=== PATIENT | female | born 1970 | race Two or more races ===

== ENCOUNTER 2018-01-31 17:28 | Emergency (ER) | payer MEDICAID ==
[~2018-01-31] VITALS: Ht 162.6 cm; Wt 77.1 kg
[2018-01-31 18:28] LABS: Urine Bacteria FEW /hpf (None Seen); Urine Blood TRACE /uL (Negative); Urine Specific Gravity 1.003 (1.001-1.035); Urine WBC <1 /hpf (0 - 5)
[2018-01-31 18:38] LABS: Basophils # (auto) 0.1 uL; Basophils % (auto) 0.9 % (0.0-2.0); Eosinophils # (auto) 0.1 uL; Eosinophils % (auto) 1.2 % (0.0-7.0); Hematocrit 38.7 % (36.0-46.0); Hemoglobin 12.6 g/dL (12.2-16.2); Lymphocytes # (auto) 1.6 uL; Lymphocytes % (auto) 24.6 % (10.0-50.0); Mean Corpuscular Hemoglobin 27.7 pg (28.0-32.0); Mean Corpuscular Hgb Conc. 32.5 g/dL (32.0-36.0); Mean Corpuscular Volume 85.1 fL (80.0-100.0); Monocytes # (auto) 0.7 uL; Neutrophils % (auto) 62.3 % (37.0-80.0); Nucleated Red Blood Cells % 0.1 %; Platelet Count (auto) 280 10^3/uL (140-450); Red Blood Cells 4.55 10^6/uL (4.0-5.20); Red Cell Distribution Width 15.7 % (11.8-14.3); White Blood Cell 6.5 10^3/uL (4.4-10.8)
[2018-01-31 18:55] LABS: Albumin 3.9 g/dL (3.4-5.0); Calcium 8.7 mg/dL (8.5-10.1); Potassium 3.9 mmol/L (3.5-5.1)
[2018-01-31 18:59] LABS: BUN/Creatinine Ratio 19.7; Bilirubin, Total 0.3 mg/dL (0.2-1.0); Total Protein 7.8 g/dL (6.4-8.2)
[2018-01-31 19:30] VITALS: BP 118/74
== END 2018-01-31 19:50 | disposition home or self-care (01) ==
LOC: ER 17:33
DX: N83.201 Unspecified ovarian cyst, right side (principal); K29.70 Gastritis, unspecified, without bleeding; Z32.02 Encounter for pregnancy test, result negative
CPT/HCPCS: 36415; 74176; 80053; 81001; 81025; 85025

== ENCOUNTER 2018-02-02 08:03 | Emergency (ER) | payer MEDICAID ==
[~2018-02-02] VITALS: Ht 162.6 cm; Wt 77.1 kg
[2018-02-02 08:32] LABS: Urine Bacteria FEW /hpf (None Seen); Urine Blood Negative /uL (Negative); Urine Mucus FEW (None Seen); Urine Specific Gravity 1.015 (1.001-1.035); Urine WBC 1 /hpf (0 - 5)
[2018-02-02 10:30] VITALS: BP 118/60
== END 2018-02-02 11:59 | disposition home or self-care (01) ==
LOC: ER 08:03
DX: D25.9 Leiomyoma of uterus, unspecified (principal)
CPT/HCPCS: 76856; 81001; 81025

== ENCOUNTER 2018-08-20 09:29 | Emergency (ER) | payer MEDICAID ==
[~2018-08-20] VITALS: Ht 162.6 cm; Wt 71.2 kg
[2018-08-20 09:37] VITALS: BP 149/83
[2018-08-20] MEDS ORDERED: IBUPROFEN 800 MG TAB PO ONE (10:30)
[2018-08-20] MEDS ORDERED: METHOCARBAMOL 500 MG TAB PO ONE (10:30)
== END 2018-08-20 11:42 | disposition home or self-care (01) ==
LOC: EDBD 09:29 → ER 09:29
DX: M16.0 Bilateral primary osteoarthritis of hip (principal); M25.552 Pain in left hip; M54.2 Cervicalgia; M25.512 Pain in left shoulder; Z86.39 Personal history of other endocrine, nutritional and metabolic disease
CPT/HCPCS: 73502

== ENCOUNTER 2018-10-16 11:18 | Emergency (ER) | payer MEDICAID ==
[~2018-10-16] VITALS: Ht 162.6 cm; Wt 71.7 kg
[2018-10-16 12:04] LABS: Urine Bacteria NONE SEEN /hpf (None Seen); Urine Blood TRACE /uL (Negative); Urine Specific Gravity 1.008 (1.001-1.035); Urine WBC 3 /hpf (0 - 5)
[2018-10-16 12:51] LABS: Basophils # (auto) 0.1 uL; Eosinophils # (auto) 0.1 uL; Eosinophils % (auto) 1.8 % (0.0-7.0); Hematocrit 40.5 % (36.0-46.0); Hemoglobin 13.4 g/dL (12.2-16.2); Lymphocytes # (auto) 1.7 uL; Lymphocytes % (auto) 27.2 % (10.0-50.0); Mean Corpuscular Hemoglobin 27.8 pg (28.0-32.0); Mean Corpuscular Hgb Conc. 33.1 g/dL (32.0-36.0); Monocytes # (auto) 0.6 uL; Monocytes % (auto) 10.2 % (0.0-12.0); Neutrophils # (auto) 3.7 uL; Neutrophils % (auto) 59.8 % (37.0-80.0); Nucleated Red Blood Cells % 0.1 %; Platelet Count (auto) 239 10^3/uL (140-450); Red Blood Cells 4.82 10^6/uL (4.0-5.20); Red Cell Distribution Width 15.9 % (11.8-14.3); White Blood Cell 6.2 10^3/uL (4.4-10.8)
[2018-10-16 13:06] LABS: Albumin 3.6 g/dL (3.4-5.0); Calcium 8.8 mg/dL (8.5-10.1); Potassium 4.5 mmol/L (3.5-5.1)
[2018-10-16 13:08] LABS: BUN/Creatinine Ratio 18.1; Bilirubin, Total 0.4 mg/dL (0.2-1.0); Total Protein 7.7 g/dL (6.4-8.2)
[2018-10-16 15:07] VITALS: BP 134/22
== END 2018-10-16 15:10 | disposition home or self-care (01) ==
LOC: ER 11:18
DX: R42 Dizziness and giddiness (principal); Z86.39 Personal history of other endocrine, nutritional and metabolic disease
CPT/HCPCS: 36415; 70450; 80053; 81001; 81025; 85025; 93005

== ENCOUNTER 2018-12-14 19:56 | Emergency (ER) | payer MEDICAID ==
[~2018-12-14] VITALS: Ht 167.6 cm; Wt 72.6 kg
[2018-12-14 21:18] LABS: Basophils # (auto) 0 uL; Basophils % (auto) 0.7 % (0.0-2.0); Eosinophils # (auto) 0.1 uL; Hematocrit 42.5 % (36.0-46.0); Lymphocytes % (auto) 31.3 % (10.0-50.0); Mean Corpuscular Hemoglobin 27.8 pg (28.0-32.0); Mean Corpuscular Volume 84.1 fL (80.0-100.0); Monocytes # (auto) 0.7 uL; Neutrophils # (auto) 3.6 uL; Platelet Count (auto) 263 10^3/uL (140-450); Red Blood Cells 5.05 10^6/uL (4.0-5.20); Red Cell Distribution Width 14.3 % (11.8-14.3); White Blood Cell 6.5 10^3/uL (4.4-10.8)
[2018-12-14 21:28] LABS: Calcium 9.4 mg/dL (8.5-10.1); Potassium 4.1 mmol/L (3.5-5.1)
[2018-12-14 21:32] LABS: BUN/Creatinine Ratio 14.8; Bilirubin, Total 0.2 mg/dL (0.2-1.0); Total Protein 7.7 g/dL (6.4-8.2)
[2018-12-14 21:32] LABS: Urine Bacteria NONE SEEN /hpf (None Seen); Urine Blood TRACE /uL (Negative); Urine Mucus FEW (None Seen); Urine Specific Gravity 1.008 (1.001-1.035); Urine WBC 3 /hpf (0 - 5)
[2018-12-15] MEDS ORDERED: LEVOTHYROXINE SODIUM 112 MCG TAB PO ONE (01:30)
[2018-12-15 03:07] VITALS: BP 118/67
== END 2018-12-15 03:13 | disposition home or self-care (01) ==
LOC: ER 19:58
DX: R00.2 Palpitations (principal); E03.9 Hypothyroidism, unspecified
CPT/HCPCS: 36415; 80053; 81001; 81025; 84443; 85025

== ENCOUNTER 2019-04-05 12:03 | Emergency (ER) | payer MEDICAID ==
[~2019-04-05] VITALS: Ht 162.6 cm; Wt 68.0 kg
[2019-04-05 12:58] VITALS: BP 125/75
[2019-04-05 13:51] LABS: Urine Bacteria FEW /hpf (None Seen); Urine Blood 2+ /uL (Negative); Urine Hyaline Cast FEW /lpf (0 - 2); Urine Mucus FEW (None Seen); Urine Specific Gravity 1.017 (1.001-1.035); Urine WBC 5 /hpf (0 - 5)
[2019-04-05 13:53] LABS: Basophils # (auto) 0.1 uL; Basophils % (auto) 0.9 % (0.0-2.0); Eosinophils # (auto) 0.2 uL; Eosinophils % (auto) 1.5 % (0.0-7.0); Hemoglobin 14.4 g/dL (12.2-16.2); Lymphocytes # (auto) 1.3 uL; Lymphocytes % (auto) 12.6 % (10.0-50.0); Mean Corpuscular Hemoglobin 27.1 pg (28.0-32.0); Mean Corpuscular Hgb Conc. 33.6 g/dL (32.0-36.0); Mean Corpuscular Volume 80.7 fL (80.0-100.0); Monocytes # (auto) 0.9 uL; Monocytes % (auto) 8.7 % (0.0-12.0); Neutrophils # (auto) 7.7 uL; Neutrophils % (auto) 76.3 % (37.0-80.0); Nucleated Red Blood Cells % 0.1 %; Platelet Count (auto) 237 10^3/uL (140-450); Red Blood Cells 5.33 10^6/uL (4.0-5.20); Red Cell Distribution Width 14.6 % (11.8-14.3); White Blood Cell 10.1 10^3/uL (4.4-10.8)
[2019-04-05 14:13] LABS: Albumin 3.5 g/dL (3.4-5.0); Anion Gap 4 (5-15); Blood Urea Nitrogen 9 mg/dL (7-18); Calcium 8.6 mg/dL (8.5-10.1); Carbon Dioxide 29 mmol/L (21-32); Chloride 106 mmol/L (98-107); Glucose 97 mg/dL (74-106); Potassium 4.7 mmol/L (3.5-5.1); Sodium 139 mmol/L (136-145)
[2019-04-05 14:17] LABS: Alanine Aminotransferase 65 U/L (13-56); Alkaline Phosphatase 69 U/L (45-117); Aspartate Aminotransferase 37 U/L (15-37); BUN/Creatinine Ratio 15.3; Bilirubin, Total 0.4 mg/dL (0.2-1.0); GFR African American 141 mL/min; GFR Non-African American 116 mL/min; Total Protein 7.6 g/dL (6.4-8.2)
== END 2019-04-05 14:44 | disposition home or self-care (01) ==
LOC: ER 12:03
DX: R00.2 Palpitations (principal); R20.2 Paresthesia of skin
CPT/HCPCS: 36415; 80053; 81001; 84443; 84484; 85025

== ENCOUNTER 2019-11-17 06:36 | Inpatient (IN) | payer SELFPAY ==
[~2019-11-17] VITALS: Ht 162.6 cm; Wt 70.0 kg
[2019-11-17 07:33] LABS: Urine Amorphous Crystal FEW /hpf (None Seen); Urine Bacteria NONE SEEN /hpf (None Seen); Urine Blood 2+ /uL (Negative); Urine Mucus FEW (None Seen); Urine Specific Gravity 1.021 (1.001-1.035); Urine WBC 17 /hpf (0 - 5)
[2019-11-17 08:55] LABS: Eosinophils # (auto) 0 10 ^3/uL (0-0.8); Hemoglobin 13.2 g/dL (12.2-16.2); Lymphocytes # (auto) 0.5 10 ^3/uL (0.4-5.4); Lymphocytes % (auto) 3.9 % (10.0-50.0)
[2019-11-17 08:56] LABS: Basophils # (auto) 0 10 ^3/uL (0-0.2); Basophils % (auto) 0.3 % (0.0-2.0); Hematocrit 39.8 % (36.0-46.0); Mean Corpuscular Hemoglobin 26.4 pg (28.0-32.0); Mean Corpuscular Hgb Conc. 33.1 g/dL (32.0-36.0); Mean Corpuscular Volume 79.6 fL (80.0-100.0); Monocytes # (auto) 0.8 10 ^3/uL (0-1.3); Neutrophils # (auto) 11.7 10 ^3/uL (1.6-8.6); Neutrophils % (auto) 89.8 % (37.0-80.0); Nucleated Red Blood Cells % 0.1 %; Platelet Count (auto) 237 10^3/uL (140-450); Red Cell Distribution Width 16.9 % (11.8-14.3); White Blood Cell 13.1 10^3/uL (4.4-10.8)
[2019-11-17] MEDS ORDERED: SODIUM CHLORIDE 0.9% 1,000 ML IV ONE (09:12)
[2019-11-17] MEDS ORDERED: SODIUM CHLORIDE 0.9% 500 ML IVB ONE (09:12)
[2019-11-17] MEDS ORDERED: PROMETHAZINE HCL 25 MG/ML 1ML IV PRN ×2 (09:15→12:00)
[2019-11-17] MEDS ORDERED: HYDROmorphone HCL 2 MG/ML VL IV ONE (09:15)
[2019-11-17] MEDS ORDERED: cefTRIAXone 1GM/50ML D5W 50 ML IV ONE (09:15)
[2019-11-17] MEDS ORDERED: metroNIDAZOLE 500MG/100ML 100 ML IV ONE (09:15)
[2019-11-17 09:17] LABS: Albumin 3.8 g/dL (3.4-5.0); BUN/Creatinine Ratio 16.5; Calcium 9.3 mg/dL (8.5-10.1); Potassium 3.8 mmol/L (3.5-5.1)
[2019-11-17 09:19] LABS: Bilirubin, Total 0.4 mg/dL (0.2-1.0)
[2019-11-17] MEDS ORDERED: IOHEXOL 300 MG/ML 100ML BOTTLE IJ ONE (10:37)
[2019-11-17] MEDS ORDERED: NITROGLYCERIN 0.4 MG SL TAB SL PRN (11:45)
[2019-11-17] MEDS ORDERED: MORPHINE SULF INJ 2 MG/ML SYRINGE 1ML IV PRN ×2 (11:45→12:00)
[2019-11-17 13:00] VITALS: BP 129/93
--- NOTE | 2019-11-17 13:30 | NUR ---
Telemetry admit from ER DERRICK WEBB admitted to Telemetry unit after SBAR received. Patient oriented to SONAL ARBOLEDA, primary RN, unit, room, bed, and unit policies regarding patient care and visiting hours. Patient now on continuous telemetry monitoring, tele box #[id number] and telemetry reading on arrival to unit is SR. Patient weighed by bedscale and encouraged to call if they need something. All questions and concerns addressed, patient verbalized understanding. Used restrooms or lounges maid phone to do patient's admission due to patient speaking mostly Bulgarian.
[2019-11-17] MEDS: MORPHINE SULF INJ 2 MG/ML SYRINGE 1ML IV PRN ×2 (13:50→19:50)
--- NOTE | 2019-11-17 14:15 | NUR ---
Paged - Temp Paged Dr. Pollock twice to inform him of patient's temperature of 102. Have not heard anything back. Patient has no order for Tylenol. Packed ice packs around the patient. Will monitor and recheck temperature. Also removed blanket and robe from patient to decrease temp.
[2019-11-17] MEDS: SODIUM CHLORIDE 0.9% 1,000 ML IV SCH ×3 (14:22→23:36)
[2019-11-17] MEDS: FAMOTIDINE (10MG/ML) 2ML VL IV SCH ×2 (14:22→23:35)
[2019-11-17] MEDS: metroNIDAZOLE 500MG/100ML 100 ML IV SCH ×2 (14:22→23:35)
[2019-11-17] MEDS ORDERED: LIOT5TAB20 PO (15:40)
[2019-11-17] MEDS ORDERED: LEVO100T8 PO (15:40)
[2019-11-17] MEDS ORDERED: ACETAMINOPHEN 650 MG RECT SUPP PR PRN (15:45)
[2019-11-17] MEDS ORDERED: MELA3TAB27 PO (16:07)
[2019-11-17 17:00] VITALS: BP 111/63
[2019-11-17 19:17] LABS: INR 1.08 (0.9-1.15); Partial Thromboplastin Time 25.2 sec (23.0-31.2)
[2019-11-17 19:50] VITALS: BP 120/57
[2019-11-17] MEDS ORDERED: SUCCINYLCHOLINE CHLORIDE 20 MG/ML 10ML VIAL IV ONE (20:42)
[2019-11-17] MEDS ORDERED: fentaNYL CITRATE 100 MCG/2 ML VL ONE (20:44)
[2019-11-17] MEDS ORDERED: MIDAZOLAM HCL 1MG/1ML-2 ML VIAL ONE (20:44)
[2019-11-17] MEDS ORDERED: ROCURONIUM 10MG/ML 10ML VIAL IV ONE (20:47)
--- NOTE | 2019-11-17 20:48 | NUR ---
PATIENT BROUGHT DOWN TO PREOP FOR LAP. APPENDECTOMY. CARE ENDORSED TO GISEL SHEARER.
[2019-11-17] MEDS ORDERED: ceFAZolin 1GM/50ML 50 ML IV ONE (20:52)
[2019-11-17] MEDS ORDERED: BUPIVACAINE 0.25% INJ 50ML VIAL ONE (20:56)
[2019-11-17] MEDS ORDERED: ONDANSETRON HCL 4 MG/2 ML VIAL ONE (21:44)
[2019-11-17] MEDS ORDERED: MEPERIDINE HCL (25 MG/ML) 1ML VIAL IM ONE (22:35)
[2019-11-17] MEDS ORDERED: MEPERIDINE HCL (25 MG/ML) 1ML VIAL ONE (22:39)
[2019-11-17] MEDS ORDERED: METOCLOPRAMIDE HCL 5MG/ml INJ 2ml VIAL IV PRN (22:45)
[2019-11-17] MEDS ORDERED: HYDROmorphone HCL 2 MG/ML VL IV PRN ×2 (22:45)
--- NOTE | 2019-11-17 23:45 | NUR ---
RECEIVED PATIENT VIA BED, ALERT AND ORIENTED X 4, C/O ABDOMINAL PAIN 5/10, WITH FIELDS CATHETER, URINE OUTPUT IS DARK TASHA, WITH LAP INCISIONS X 3, BULB DRAIN ON LOWER ABDOMEN WITH SEROSANGUINOUS OUTPUT. PATIENT IS RECEIVING NS AT 150ML/HR, TELE #67, NSR.
[2019-11-18 05:00] VITALS: BP 104/62
[2019-11-18 06:06] LABS: Basophils # (auto) 0 10 ^3/uL (0-0.2); Basophils % (auto) 0.2 % (0.0-2.0); Eosinophils # (auto) 0 10 ^3/uL (0-0.8); Mean Corpuscular Volume 80.3 fL (80.0-100.0)
[2019-11-18 06:08] LABS: Hematocrit 34.6 % (36.0-46.0); Hemoglobin 11.3 g/dL (12.2-16.2); Lymphocytes # (auto) 1.2 10 ^3/uL (0.4-5.4); Lymphocytes % (auto) 7.8 % (10.0-50.0); Mean Corpuscular Hemoglobin 26.2 pg (28.0-32.0); Mean Corpuscular Hgb Conc. 32.7 g/dL (32.0-36.0); Monocytes # (auto) 0.7 10 ^3/uL (0-1.3); Monocytes % (auto) 4.4 % (0.0-12.0); Neutrophils % (auto) 87.6 % (37.0-80.0); Platelet Count (auto) 193 10^3/uL (140-450); Red Blood Cells 4.31 10^6/uL (4.0-5.20); Red Cell Distribution Width 17.5 % (11.8-14.3); White Blood Cell 14.8 10^3/uL (4.4-10.8)
[2019-11-18] MEDS: metroNIDAZOLE 500MG/100ML 100 ML IV SCH ×3 (06:14→20:59)
[2019-11-18] MEDS: MORPHINE SULF INJ 2 MG/ML SYRINGE 1ML IV PRN ×4 (06:15→20:59)
[2019-11-18 06:30] LABS: Albumin 2.6 g/dL (3.4-5.0); Calcium 7.9 mg/dL (8.5-10.1); Potassium 3.8 mmol/L (3.5-5.1)
[2019-11-18 06:33] LABS: BUN/Creatinine Ratio 28.1
--- NOTE | 2019-11-18 06:36 | NUR ---
TAO DRAIN OUTPUT IS 40ML, SEROSANGUINOUS.
[2019-11-18 06:48] LABS: Bilirubin, Total 0.7 mg/dL (0.2-1.0); Total Protein 6.3 g/dL (6.4-8.2)
[2019-11-18] MEDS: SODIUM CHLORIDE 0.9% 1,000 ML IV SCH ×3 (07:36→23:45)
[2019-11-18] MEDS: cefTRIAXone 1GM/50ML D5W 50 ML IV SCH (08:38)
[2019-11-18 09:00] VITALS: BP 101/62
[2019-11-18] MEDS: FAMOTIDINE (10MG/ML) 2ML VL IV SCH ×2 (11:31→23:47)
[2019-11-18] MEDS ORDERED: LEVOTHYROXINE SODIUM 100 MCG TAB PO ONE (12:15)
[2019-11-18 13:00] VITALS: BP 111/57
[2019-11-18 16:59] VITALS: BP 124/66
--- NOTE | 2019-11-18 20:49 | NUR ---
IV insertion IV access obtained, via clean sterile technique by inserting #22 gauge catheter at LEFT WRIST after 1 attempt(s). IV secured properly. No trauma to site. Patient tolerated well. IV removal IV DC'd ON RIGHT AC with clean sterile technique, catheter fully intact. Pressure dressing applied to site. Patient tolerated well. NOTE:
--- NOTE | 2019-11-18 21:00 | NUR ---
Opening Shift Note Assumed care of patient, awake and alert. No S/S of distress/SOB. Patient got out of bed with minimal assist, sat on the chair and walked around hallway. Patient tolerated activity well, c/o abdominal pain and medicated with morphine as ordered. Instructed on POC and to call for assist PRN, will continue to monitor for changes Q1hr and PRN.
[2019-11-18 22:00] VITALS: BP 133/81
[2019-11-18] MEDS: TEMAZEPAM 15 MG CAP PO PRN (23:51)
[2019-11-19 05:00] VITALS: BP 140/84
[2019-11-19] MEDS: metroNIDAZOLE 500MG/100ML 100 ML IV SCH ×3 (05:33→20:34)
[2019-11-19] MEDS: MORPHINE SULF INJ 2 MG/ML SYRINGE 1ML IV PRN ×3 (05:42→20:33)
--- NOTE | 2019-11-19 06:56 | NUR ---
TAO DRAIN OUTPUT IS 20 ML, SEROUSANGUINOUS.
[2019-11-19] MEDS ORDERED: LIOTHYRONINE PO SCH (07:00)
[2019-11-19] MEDS ORDERED: LEVOTHYROXINE SODIUM 100 MCG TAB PO SCH (07:00)
[2019-11-19 07:16] LABS: Basophils # (auto) 0 10 ^3/uL (0-0.2); Eosinophils # (auto) 0 10 ^3/uL (0-0.8); Eosinophils % (auto) 0.1 % (0.0-7.0); Mean Corpuscular Volume 79.7 fL (80.0-100.0); Monocytes # (auto) 0.6 10 ^3/uL (0-1.3)
[2019-11-19 07:19] LABS: Basophils % (auto) 0.1 % (0.0-2.0); Hematocrit 34.5 % (36.0-46.0); Hemoglobin 11.3 g/dL (12.2-16.2); Lymphocytes # (auto) 0.9 10 ^3/uL (0.4-5.4); Lymphocytes % (auto) 6.5 % (10.0-50.0); Mean Corpuscular Hemoglobin 26.1 pg (28.0-32.0); Mean Corpuscular Hgb Conc. 32.8 g/dL (32.0-36.0); Monocytes % (auto) 4.3 % (0.0-12.0); Neutrophils # (auto) 12.8 10 ^3/uL (1.6-8.6); Platelet Count (auto) 192 10^3/uL (140-450); Red Blood Cells 4.32 10^6/uL (4.0-5.20); Red Cell Distribution Width 17.6 % (11.8-14.3); White Blood Cell 14.4 10^3/uL (4.4-10.8)
[2019-11-19 07:35] LABS: Potassium 3.4 mmol/L (3.5-5.1)
[2019-11-19 07:44] LABS: BUN/Creatinine Ratio 20.4; Calcium 8.2 mg/dL (8.5-10.1); Magnesium 2.3 mg/dL (1.6-2.6)
[2019-11-19 08:00] VITALS: BP 128/79
--- NOTE | 2019-11-19 08:00 | NUR ---
Patient eating breakfast. No distress noted at this time. Patient stable.
[2019-11-19 09:00] VITALS: BP 128/79
[2019-11-19] MEDS: SODIUM CHLORIDE 0.9% 1,000 ML IV SCH ×2 (09:28→20:12)
[2019-11-19] MEDS: cefTRIAXone 1GM/50ML D5W 50 ML IV SCH (09:28)
--- NOTE | 2019-11-19 09:30 | NUR ---
Patient resting quietly in bed with no complaint of pain. Scheduled IV abx given per order. Patient stable.
--- NOTE | 2019-11-19 11:15 | NUR ---
Patient resting comfortably in bed. Emptied 120mls from TAO drain and 650mls from Hutchinson drainage bag. Hutchinson catheter discontinued per order. Patient ambulated to bathroom.
--- NOTE | 2019-11-19 11:30 | NUR ---
Patient ambulating in hallway.
[2019-11-19] MEDS: FAMOTIDINE (10MG/ML) 2ML VL IV SCH (11:48)
--- NOTE | 2019-11-19 11:54 | NUR ---
Patient resting in bed with no distress noted. Scheduled IVP medication given per order. Patient requested pain med for 8/10 abdominal pain. Will medicate.
--- NOTE | 2019-11-19 12:15 | NUR ---
Patient ambulated to bathroom and back to bed; then medicated for 8/10 abdominal pain. Patient stable at this time.
[2019-11-19] MEDS ORDERED: POTASSIUM CHL 20 Meq TABLET PO ONE (12:45)
--- NOTE | 2019-11-19 13:24 | NUR ---
Scheduled IV abx given per order. Patient resting comfortably in bed with no distress noted. Patient stable.
--- NOTE | 2019-11-19 14:09 | NUR ---
Patient sitting on side of bed. Scheduled medication given per order. Patient stable.
--- NOTE | 2019-11-19 15:00 | NUR ---
Patient resting comfortably in bed with eyes closed. No distress noted. Patient stable.
[2019-11-19 16:57] VITALS: BP 113/54
--- NOTE | 2019-11-19 17:50 | NUR ---
Patient ambulating in hallway.
--- NOTE | 2019-11-19 20:30 | NUR ---
PATIENT AMBULATED AROUND HALLWAYS, TOLERATED WELL. TAO DRAIN SITE DRESSING WAS SATURATED WITH SANGUINOUS DRAIN, DRESSING CHANGED.
[2019-11-19] MEDS: TEMAZEPAM 15 MG CAP PO PRN (20:34)
[2019-11-19 22:39] VITALS: BP 134/78
[2019-11-20] MEDS: FAMOTIDINE (10MG/ML) 2ML VL IV SCH ×2 (00:32→11:45)
[2019-11-20 05:00] VITALS: BP 119/64
[2019-11-20] MEDS: metroNIDAZOLE 500MG/100ML 100 ML IV SCH ×3 (05:06→21:53)
[2019-11-20] MEDS: SODIUM CHLORIDE 0.9% 1,000 ML IV SCH ×2 (05:06→12:50)
--- NOTE | 2019-11-20 05:59 | NUR ---
TAO DRAIN OUT PUT IS 100ML, SANGUINOUS. DRESSING CHANGED AT THE TAO DRAIN SITE IT WAS SATURATED.
[2019-11-20 07:12] LABS: Basophils # (auto) 0 10 ^3/uL (0-0.2); Eosinophils # (auto) 0.1 10 ^3/uL (0-0.8); Monocytes # (auto) 0.8 10 ^3/uL (0-1.3); Red Blood Cells 4.27 10^6/uL (4.0-5.20)
[2019-11-20 07:14] LABS: Basophils % (auto) 0.2 % (0.0-2.0); Eosinophils % (auto) 1.1 % (0.0-7.0); Hematocrit 34.2 % (36.0-46.0); Hemoglobin 11.4 g/dL (12.2-16.2); Lymphocytes # (auto) 0.9 10 ^3/uL (0.4-5.4); Lymphocytes % (auto) 8.6 % (10.0-50.0); Mean Corpuscular Hemoglobin 26.7 pg (28.0-32.0); Mean Corpuscular Hgb Conc. 33.4 g/dL (32.0-36.0); Monocytes % (auto) 7.4 % (0.0-12.0); Neutrophils # (auto) 8.6 10 ^3/uL (1.6-8.6); Neutrophils % (auto) 82.7 % (37.0-80.0); Nucleated Red Blood Cells % 0.1 %; Platelet Count (auto) 227 10^3/uL (140-450); Red Cell Distribution Width 17.1 % (11.8-14.3); White Blood Cell 10.4 10^3/uL (4.4-10.8)
--- NOTE | 2019-11-20 07:45 | NUR ---
Patient resting comfortably in bed with no complaint of pain at this time. Patient stable.
[2019-11-20] MEDS ORDERED: NEOSTIGMINE 1 MG/ML INJ (10mg/10ML VIAL) IV ONE (08:07)
[2019-11-20 08:30] VITALS: BP 134/77
[2019-11-20 09:00] VITALS: BP 128/77
[2019-11-20] MEDS: cefTRIAXone 1GM/50ML D5W 50 ML IV SCH (09:02)
--- NOTE | 2019-11-20 09:04 | NUR ---
Scheduled IV abx given per order. Patient resting comfortably in bed with no distress noted. Patient stable.
--- NOTE | 2019-11-20 09:40 | NUR ---
Patient stable with Dr. Goodwin at bedside. New order given and carried out: advance to soft diet.
--- NOTE | 2019-11-20 11:10 | NUR ---
Patient resting comfortably in bed with no distress noted; no complaint of abdominal pain. Patient stable.
--- NOTE | 2019-11-20 11:46 | NUR ---
Scheduled IVP medication given per order. Patient resting quietly in bed with no distress. Stable.
[2019-11-20] MEDS ORDERED: POTASSIUM CHL 20 Meq TABLET PO ONE (12:15)
--- NOTE | 2019-11-20 12:50 | NUR ---
Scheduled po med given per order. Patient sitting in chair at bedside. Denies any pain at this time. Patient stable.
[2019-11-20 12:52] VITALS: BP 126/79
--- NOTE | 2019-11-20 14:25 | NUR ---
Patient ambulated to bathroom and back to bed. Scheduled IV abx given per order. Patient stable.
--- NOTE | 2019-11-20 15:00 | NUR ---
TAO drain site leaking. Dressing changed. Patient stable at this time.
--- NOTE | 2019-11-20 15:36 | NUR ---
Nutrition Assessment Notes please see attached link for complete assessment [employer] needs BW 71 [id number] kcals (23-25kcal/kgBW), Est Protein needs: 71-78 gms/day (1.0-1.1 gm/kgBW). Will continue to monitor and reassess prn. Addendum: 11/20/19 at [address] Amended: Links added.
[2019-11-20 17:00] VITALS: BP 126/59
--- NOTE | 2019-11-20 17:25 | NUR ---
Patient ambulating in hallway.
--- NOTE | 2019-11-20 17:50 | NUR ---
Patient stable with Dr. Jacobson (surgeon) at bedside.
--- NOTE | 2019-11-20 19:25 | NUR ---
Opening Shift Note Received report from Melody BATRES. Assumed care of patient, awake and alert. No S/S of distress/SOB or pain. Instructed on POC and to call for assist PRN, will continue to monitor for changes Q1hr and PRN.
[2019-11-20] MEDS: MORPHINE SULF INJ 2 MG/ML SYRINGE 1ML IV PRN (21:53)
[2019-11-20] MEDS: TEMAZEPAM 15 MG CAP PO PRN (21:53)
[2019-11-20 22:00] VITALS: BP 128/79
--- NOTE | 2019-11-20 22:10 | NUR ---
IV removal IV site leaking. IV DC'd with clean sterile technique, catheter fully intact. Pressure dressing applied to site. Patient tolerated well.
--- NOTE | 2019-11-20 22:16 | NUR ---
IV insertion IV access obtained, via clean sterile technique by inserting 22 gauge catheter at Right AC after one attempt. IV secured properly. No trauma to site. Patient tolerated procedure well.
[2019-11-21] MEDS: SODIUM CHLORIDE 0.9% 1,000 ML IV SCH ×2 (01:00→16:51)
--- NOTE | 2019-11-21 01:00 | NUR ---
TAO drain site on lower abdomen leaking, dressing changed.
[2019-11-21] MEDS: FAMOTIDINE (10MG/ML) 2ML VL IV SCH ×2 (03:32→12:32)
[2019-11-21 05:00] VITALS: BP 137/81
[2019-11-21] MEDS: metroNIDAZOLE 500MG/100ML 100 ML IV SCH ×2 (05:49→14:54)
[2019-11-21 06:16] LABS: Basophils # (auto) 0 10 ^3/uL (0-0.2); Basophils % (auto) 0.4 % (0.0-2.0); Eosinophils # (auto) 0.2 10 ^3/uL (0-0.8); Eosinophils % (auto) 2.5 % (0.0-7.0); Hematocrit 32.8 % (36.0-46.0); Lymphocytes # (auto) 0.7 10 ^3/uL (0.4-5.4); Lymphocytes % (auto) 8.7 % (10.0-50.0); Mean Corpuscular Hemoglobin 26.5 pg (28.0-32.0); Mean Corpuscular Hgb Conc. 33.5 g/dL (32.0-36.0); Mean Corpuscular Volume 79.2 fL (80.0-100.0); Monocytes # (auto) 0.9 10 ^3/uL (0-1.3); Neutrophils # (auto) 6.4 10 ^3/uL (1.6-8.6); Neutrophils % (auto) 77.4 % (37.0-80.0); Platelet Count (auto) 266 10^3/uL (140-450); Red Blood Cells 4.14 10^6/uL (4.0-5.20); White Blood Cell 8.2 10^3/uL (4.4-10.8)
[2019-11-21 06:53] LABS: Potassium 3.5 mmol/L (3.5-5.1)
[2019-11-21 06:59] LABS: BUN/Creatinine Ratio 16.3; Calcium 7.8 mg/dL (8.5-10.1)
--- NOTE | 2019-11-21 07:15 | NUR ---
Patient ambulating in hallway.
[2019-11-21 07:30] VITALS: BP 120/44
[2019-11-21] MEDS: cefTRIAXone 1GM/50ML D5W 50 ML IV SCH (08:43)
--- NOTE | 2019-11-21 08:45 | NUR ---
Scheduled IV abx given per order. Patient resting comfortably in bed with no complaint of pain. Patient stable.
[2019-11-21 09:00] VITALS: BP 120/74
--- NOTE | 2019-11-21 09:15 | NUR ---
Patient ambulating in hallway.
--- NOTE | 2019-11-21 10:10 | NUR ---
Patient resting comfortably in bed with Dr. Goodwin at bedside. Patient stable.
--- NOTE | 2019-11-21 10:14 | NUR ---
assessment Patient is a 49 year old female who is alert and oriented. Patients cognitive abilities are intact. Prior to admission patient lived home with family and functioned independently. Patient informed me she is able to care for her own ADLs. Per patient she will return home to her prior living arrangements post discharge and family will transport her home. Patient informed me she has no need for DME or oxygen prior to admission. Patient infomred me her PCP is in [place]. Patient has no insurance. Patient has been assessed by Philipp Moffett of [facility]. Patient is over income. I have provided patient with resources for [facility], Dr. Hoff, and [facility] urgent care for follow up visits. I have provided patient with a prescription card from community assistance program. I informed patient she has a right to speak to a social services counselor regarding all care. I informed patient she has a right to participate in any and all discharge planning. Patient does not have a POA and advanced directive. I have offered patient information on POA and advanced directives. I informed the patient the advantages and benefits of having an Advanced Directive. Patient verbalized understanding and agreed to discharge plan. Addendum: 11/21/19 at 1016 by Leonie SHOOK Amended: Links added.
[2019-11-21 10:25] VITALS: BP 120/74
--- NOTE | 2019-11-21 11:00 | NUR ---
Patient sitting in chair at bedside. Emptied 30mls from TAO drain. Patient denies any pain. Patient stable.
--- NOTE | 2019-11-21 12:32 | NUR ---
Patient sitting in chair, eating lunch. Scheduled IVP med given per order. Patient stable at this time.
[2019-11-21] MEDS ORDERED: ONDA-144 PO (12:46)
[2019-11-21] MEDS ORDERED: METR500T PO (12:46)
[2019-11-21] MEDS ORDERED: DOCU-94 PO (12:46)
[2019-11-21] MEDS ORDERED: LEVO500T21 PO (12:46)
[2019-11-21] MEDS ORDERED: FAMO20TA10 PO (12:47)
[2019-11-21 13:00] VITALS: BP 122/75
--- NOTE | 2019-11-21 14:55 | NUR ---
Patient resting comfortably in bed with no complaint of pain. Scheduled IV abx given per order. Reinforced dressing around TAO drain site. Patient stable at this time.
--- NOTE | 2019-11-21 17:25 | NUR ---
Discharge instructions Both written and verbal discharge instructions given to patient. Patient also taught how to empty and record TAO drainage and to change dressing at TAO site. Patient verbalized understanding of instructions and teaching. All belongings with patient. Patient stable at this time.
--- NOTE | 2019-11-21 19:00 | NUR ---
Discharge Peripheral IV removed intact with no active bleeding. Patient tolerated well. Patient discharged to home in stable condition.
== END 2019-11-21 19:00 | disposition home or self-care (01) | DRG 853 ==
LOC: ER 06:36 → TELE 06:37 → TELE-WESTW 12:30
PROVIDERS: ADMIT Internal Medicine; ATTEND Internal Medicine
PROC: 0DTJ4ZZ Resection of Appendix, Percutaneous Endoscopic Approach (ICD-10-PCS; principal; 2019-11-17 21:13)
DX: A41.9 Sepsis, unspecified organism (principal); K35.33 Acute appendicitis with perforation, localized peritonitis, and gangrene, with abscess; E03.9 Hypothyroidism, unspecified; N83.291 Other ovarian cyst, right side; E87.6 Hypokalemia; N28.1 Cyst of kidney, acquired; Z20.828 Contact with and (suspected) exposure to other viral communicable diseases; Z82.3 Family history of stroke; Z82.49 Family history of ischemic heart disease and other diseases of the circulatory system; Z98.51 Tubal ligation status; Z79.899 Other long term (current) drug therapy
CPT/HCPCS: 36415; 71045; 74176; 74178; 80048; 80053; 81001; 81025; 83690; 83735; 84132; 84443; 85025; 85610; 85730; 86850; 86900; 86901; 87040; 87086; 87426; 93005; 96365; 96368; 96375; 97163; G0378; J0330; J0690; J0696; J2250; J2405; J3490

== ENCOUNTER 2019-12-13 08:38 | Emergency (ER) | payer MEDICAID ==
[~2019-12-13] VITALS: Ht 162.6 cm; Wt 64.9 kg
[~2019-12-13 08:38] MED LIST: DOCU-94 PO; FAMO20TA10 PO; LEVO500T21 PO; MELA3TAB27 PO; METR500T PO; ONDA-144 PO
[2019-12-13 09:09] LABS: Basophils # (auto) 0 10 ^3/uL (0-0.2); Hemoglobin 13.7 g/dL (12.2-16.2); Lymphocytes # (auto) 1.1 10 ^3/uL (0.4-5.4); Mean Corpuscular Hemoglobin 25.7 pg (28.0-32.0); Monocytes # (auto) 0.5 10 ^3/uL (0-1.3); Neutrophils # (auto) 4.3 10 ^3/uL (1.6-8.6); Nucleated Red Blood Cells % 0.1 %; White Blood Cell 6.1 10^3/uL (4.4-10.8)
[2019-12-13 09:11] LABS: Basophils % (auto) 0.7 % (0.0-2.0); Eosinophils # (auto) 0.1 10 ^3/uL (0-0.8); Eosinophils % (auto) 2.3 % (0.0-7.0); Hematocrit 43.9 % (36.0-46.0); Lymphocytes % (auto) 18.7 % (10.0-50.0); Mean Corpuscular Hgb Conc. 31.3 g/dL (32.0-36.0); Mean Corpuscular Volume 82.3 fL (80.0-100.0); Monocytes % (auto) 7.7 % (0.0-12.0); Neutrophils % (auto) 70.6 % (37.0-80.0); Platelet Count (auto) 284 10^3/uL (140-450); Red Blood Cells 5.33 10^6/uL (4.0-5.20); Red Cell Distribution Width 18.1 % (11.8-14.3)
[2019-12-13] MEDS ORDERED: IOHEXOL 300 MG/ML 100ML BOTTLE IJ ONE (09:11)
[2019-12-13] MEDS ORDERED: SODIUM CHLORIDE 0.9% 1,000 ML IV ONE ×2 (09:26)
[2019-12-13 10:00] VITALS: BP 128/81
[2019-12-13 10:04] LABS: Albumin 4.2 g/dL (3.4-5.0); BUN/Creatinine Ratio 18.2; Calcium 9.7 mg/dL (8.5-10.1)
[2019-12-13 10:07] LABS: Bilirubin, Total 0.5 mg/dL (0.2-1.0); Total Protein 8.6 g/dL (6.4-8.2)
[2019-12-13 10:41] LABS: Urine Bacteria NONE SEEN /hpf (None Seen); Urine Blood 1+ /uL (Negative); Urine Specific Gravity 1.005 (1.001-1.035); Urine WBC 1 /hpf (0 - 5)
== END 2019-12-13 12:39 | disposition home or self-care (01) ==
LOC: ER 08:38
DX: E86.0 Dehydration (principal); R10.84 Generalized abdominal pain; E07.9 Disorder of thyroid, unspecified
CPT/HCPCS: 36415; 71045; 74177; 80053; 81001; 83605; 85025; 96360; 96361; 99285; J7030; Q9967

== ENCOUNTER 2022-10-22 11:42 | Emergency (ER) | payer SELFPAY ==
[~2022-10-22] VITALS: Ht 162.6 cm; Wt 73.0 kg
[~2022-10-22 11:42] MED LIST changes: -LEVO500T21 PO; +LEVO500T31 PO
[2022-10-22 11:54] VITALS: BP 116/54; PULSE 74; RESP 16; O2SAT 96
[2022-10-22 12:26] LABS: Basophils # (auto) 0.1 10 ^3/uL (0-0.2); Basophils % (auto) 0.8 % (0.0-2.0); Eosinophils # (auto) 0.1 10 ^3/uL (0-0.8); Hematocrit 40.6 % (36.0-46.0); Hemoglobin 13.3 g/dL (12.2-16.2); Lymphocytes % (auto) 32.4 % (10.0-50.0); Mean Corpuscular Hemoglobin 27.3 pg (28.0-32.0); Mean Corpuscular Hgb Conc. 32.7 g/dL (32.0-36.0); Mean Corpuscular Volume 83.5 fL (80.0-100.0); Monocytes # (auto) 0.5 10 ^3/uL (0-1.3); Neutrophils # (auto) 3.5 10 ^3/uL (1.6-8.6); Neutrophils % (auto) 56.8 % (37.0-80.0); Red Blood Cells 4.86 10^6/uL (4.0-5.20); Red Cell Distribution Width 14.1 % (11.8-14.3); White Blood Cell 6.2 10^3/uL (4.4-10.8)
[2022-10-22 12:44] LABS: Urine Bacteria NONE SEEN /hpf (None Seen); Urine Blood 2+ /uL (Negative); Urine Mucus FEW (None Seen); Urine Specific Gravity 1.021 (1.001-1.035); Urine WBC 1 /hpf (0 - 5)
[2022-10-22 12:57] LABS: Albumin 4.1 g/dL (3.4-5.0); Calcium 9.1 mg/dL (8.5-10.1); Potassium 4.4 mmol/L (3.5-5.1)
[2022-10-22 13:01] LABS: BUN/Creatinine Ratio 23.9 (10.0-20.0); Bilirubin, Total 0.3 mg/dL (0.2-1.0)
== END 2022-10-22 15:22 | disposition home or self-care (01) ==
LOC: ER 11:42
DX: K40.90 Unilateral inguinal hernia, without obstruction or gangrene, not specified as recurrent (principal); N83.201 Unspecified ovarian cyst, right side; D21.9 Benign neoplasm of connective and other soft tissue, unspecified; Z79.899 Other long term (current) drug therapy; Z90.49 Acquired absence of other specified parts of digestive tract
CPT/HCPCS: 36415; 74176; 76856; 80053; 81001; 83690; 85025

== ENCOUNTER → 2022-12-09 | Outpatient (CLI) | payer MEDICAID ==
[2022-12-09 08:19] LABS: Basophils # (auto) 0.1 10 ^3/uL (0-0.2); Basophils % (auto) 1.2 % (0.0-2.0); Eosinophils # (auto) 0.1 10 ^3/uL (0-0.8); Eosinophils % (auto) 3.2 % (0.0-7.0); Hematocrit 39.5 % (36.0-46.0); Hemoglobin 13.4 g/dL (12.2-16.2); Lymphocytes # (auto) 1.7 10 ^3/uL (0.4-5.4); Lymphocytes % (auto) 38.3 % (10.0-50.0); Mean Corpuscular Hemoglobin 27.8 pg (28.0-32.0); Mean Corpuscular Volume 81.8 fL (80.0-100.0); Monocytes # (auto) 0.4 10 ^3/uL (0-1.3); Monocytes % (auto) 8.6 % (0.0-12.0); Neutrophils # (auto) 2.2 10 ^3/uL (1.6-8.6); Neutrophils % (auto) 48.7 % (37.0-80.0); Red Blood Cells 4.83 10^6/uL (4.0-5.20); Red Cell Distribution Width 13.8 % (11.8-14.3); White Blood Cell 4.5 10^3/uL (4.4-10.8)
[2022-12-09 08:41] LABS: Urine Bacteria FEW /hpf (None Seen); Urine Blood 1+ /uL (Negative); Urine Clarity HAZY (Clear); Urine Color Yellow (Yellow); Urine Mucus FEW (None Seen); Urine Protein, UAD TRACE (Negative); Urine Specific Gravity 1.017 (1.001-1.035); Urine Urobilinogen Normal (Negative); Urine WBC 16 /hpf (0 - 5)
[2022-12-09 09:09] LABS: Triglycerides 96 mg/dL (< 150)
[2022-12-09 09:11] LABS: Alanine Aminotransferase 34 U/L (7-40); Albumin 4.7 g/dL (3.2-4.8); Alkaline Phosphatase 66 U/L (46-116); Anion Gap 5 (5-15); Aspartate Aminotransferase 18 U/L (13-40); Blood Urea Nitrogen 12 mg/dL (9-23); Calcium 9.5 mg/dL (8.5-10.1); Carbon Dioxide 29 mmol/L (20-30); Chloride 105 mmol/L (98-107); Cholesterol 249 mg/dL (< 200); Glucose 94 mg/dL (74-106); HDL Cholesterol 55 mg/dL (40-59); Potassium 4.1 mmol/L (3.5-5.1); Sodium 139 mmol/L (136-145)
[2022-12-09 09:12] LABS: Bilirubin, Total 0.7 mg/dL (0.2-1.0); Total Protein 7.8 g/dL (5.7-8.2)
[2022-12-09 10:07] LABS: LDL Cholesterol 194 mg/dL (< 100)
[2022-12-09 10:20] LABS: T3 Total 1.19 ng/mL (0.60-1.81)
[2022-12-09 10:21] LABS: Ferritin 67.3 ng/mL (10-291)
[2022-12-10 08:07] LABS: Estradiol <5.0 pg/mL (.); Thyroxine (T4) 8.1 ug/dL (4.5-12.0)
== END | disposition home or self-care (01) ==
LOC: LAB 07:54
DX: E03.9 Hypothyroidism, unspecified (principal); E34.9 Endocrine disorder, unspecified; E55.9 Vitamin D deficiency, unspecified; R53.82 Chronic fatigue, unspecified; E78.00 Pure hypercholesterolemia, unspecified; D25.9 Leiomyoma of uterus, unspecified
CPT/HCPCS: 36415; 80053; 80061; 81001; 82533; 82626; 82670; 82728; 83540; 84144; 84403; 84436; 84443; 84480; 85025

== ENCOUNTER 2024-02-07 14:42 | Emergency (ER) | payer MEDICAID ==
[~2024-02-07] VITALS: Ht 162.6 cm; Wt 76.6 kg
--- NOTE | 2024-02-07 16:17 | DVH ---
CLINICAL INDICATION: pain TECHNIQUE: 3 radiographic views of the left hip were obtained. Comparison: None FINDINGS/IMPRESSION: There is no evidence of acute fracture or dislocation. The visualized joint space is well maintained. The alignment is anatomical. There is no radiopaque foreign body.
[2024-02-07 16:31] VITALS: BP 130/68; PULSE 74; RESP 16; TEMP 98.2; O2SAT 97
--- NOTE | 2024-02-07 16:33 | ED.PDOC ---
Musculoskeletal HPI Comments 53 year old presents for atraumatic anterior left hip pain Onset: 1 day ago while walking Pain worsens with ambulation and improves at rest Taking nothing for pain Denies fevers Chief Complaint: Lower Extremity Time Seen by MD: 15:28 Primary Care Provider: [facility] Reviewed Notes: Nurses Notes, Medications, Allergies Allergies: Coded Allergies: NO KNOWN ALLERGIES (Unverified , 10/16/18) Home Meds Active Scripts Meloxicam (Meloxicam) 15 Mg Tab, 1 TAB PO DAILY for 30 Days, #30 TAB 1 Refill Prov:URSULA LANDAVERDE NP 02/07/24 Famotidine (PEPCID TABLET) 20 Mg Tb, 1 TAB PO DAILY, #30 TAB Prov:RAVEN MARCELO MD 11/21/19 Docusate Sodium (Colace) 100 Mg Cap, 1 CAP PO BID PRN, #30 CAP Prov:RAVEN MARCELO MD 11/21/19 Ondansetron (Zofran) 4 Mg Tab, 1 TAB PO Q6HR, #20 TAB Prov:RAVEN MARCELO MD 11/21/19 Metronidazole (Flagyl) 500 Mg Tab, 500 MG PO Q8HR, #30 TAB Prov:RAVEN MARCELO MD 11/21/19 Levofloxacin (Levaquin) 500 Mg Tab, 500 MG PO DAILY, #10 TAB Prov:RAVEN MARCELO MD 11/21/19 Reported Medications Melatonin (KP MELATONIN) 3 Mg Tab, 1 TAB PO QPM PRN for FOR INSOMNIA, #30 TAB 2 Refills 11/17/19 Information Source: Patient Mode of Arrival: Ambulatory Past Medical History PAST MEDICAL HISTORY: Thyroid Surgical History: Appendectomy [employer] WORK[employer] History: Ovarian Cysts Family History Family History: Reviewed,noncontributory to illness, Family hx of DM, Family hx of heart tana, Family hx of HTN Social History Smoker: Non-Smoker Alcohol: Denies ETOH Use Drugs: Denies Drug Use Lives In: Home All Other Systems: Reviewed and Negative (Per HPI) Physical Exam General Appearance: No Apparent Distress, Normal HEENT: Normal ENT Inspection, Pharynx Normal, TMs Normal Neck: Full Range of Motion, Non-Tender, Normal, Normal Inspection Respiratory: Chest Non-Tender, Lungs Clear, No Accessory Muscle Use, No Respiratory Distress, Normal Breath Sounds Cardiovascular: No Edema, No JVD, No Murmur, No Gallop, Normal Peripheral Pulses, Regular Rate/Rhythm Breast Exam: Deferred Gastrointestinal: No Organomegaly, Non Tender, No Pulsatile Mass, Normal Bowel Sounds, Soft Genitalia: Deferred Pelvic: Deferred Rectal: Deferred Extremities: No calf tenderness, Normal capillary refill, Normal inspection, Normal range of motion, Non-tender, No pedal edema Musculoskeletal : Apperance: Normal Neurologic: Alert, soft crab shedder II-XII nml as Tested, No Motor Deficits, Normal Affect, Normal Mood, No Sensory Deficits Cerebellar Function: Normal Reflexes: Normal Skin: Dry, Normal Color, Warm Lymphatic: No Adenopathy Was a procedure done? Was a procedure done?: No Images 1 - Localized TTP. No other gross abnormality. no crepitus. no shortening of the leg Differential Diagnosis EXT Differential Diagnosis: Fracture, Sprain, Arthritis X-Ray, Labs, Meds, VS Vital Signs Date Time Temp Pulse Resp B/P (MAP) Pulse Ox O2 Delivery O2 Flow Rate FiO2 02/07/24 16:31 74 16 97 Room Air 02/07/24 16:31 98.2 74 16 130/68 (88) 97 98.2 02/07/24 15:05 98.6 70 18 133/66 (88) 96 Current Medications Medications (Trade) Dose Ordered Sig/Lorena Route Start Time Stop Time Status Last Admin Ketorolac Tromethamine (Toradol Injection) 30 mg ONCE ONCE IM 02/07/24 16:45 02/07/24 16:46 DC 02/07/24 16:49 Methylprednisolone Sodium Succinate (Solu Medrol) 125 mg ONCE ONCE IM 02/07/24 16:45 02/07/24 16:46 DC 02/07/24 16:49 X-Ray, Labs, Meds, VS Comment Findings consistent with a degenerative changes. On reevaluation, patient had symptomatic improvement. Patient is stable for discharge at this time. External notes reviewed. Test results and diagnostic imaging interpreted. All diagnostic findings, discharge care, education and instructions provided Follow-up with PCP in 2 to 3 days Patient verbalized understanding and agreed to treatment plan Vital signs stable, afebrile, no acute distress noted Patient ambulatory with strong steady gait Advised to return precautions for any new or worsening symptoms, return to ER immediately for re-evaluation Patient is aware that the purpose of this visit was for an acute medical emergency requiring emergent stabilization. Chronic conditions, including malignancies have not been ruled out. Patient is instructed to follow up with PCP as directed and discharge instructions for continued care and workup. If unable to arrange follow-up, patient is to return to the emergency department for reassessment. Patient (parent or legal guardian if applicable) was given verbal and written discharge instructions and acknowledges understanding. Time of 1ST Reevaluation: 16:32 Reevaluation 1ST: Improved Patient Education/Counseling: Diagnosis, Treatment Family Education/Counseling: Diagnosis, Treatment Departure 1 Departure Time of Disposition: 17:27 Impression: Primary Impression: Left hip pain Disposition: 01 HOME / SELF CARE / HOMELESS Condition: Stable e-Prescriptions Meloxicam (Meloxicam) 15 Mg Tab 1 TAB PO DAILY for 30 Days, #30 TAB 1 Refill Prov: URSULA LANDAVERDE NP 02/07/24 Discharged With: Self Critical Care Note Critical Care Time?: No Stability Stability form required: No Heart Score Heart Score: Heart Score Response (Comments) Value History N/A 0 EKG N/A 0 Age N/A 0 Risk Factors N/A 0 Troponin N/A 0 Total 0 URSULA LANDAVERDE NP Feb 07, 2024 16:33
[2024-02-07] MEDS ORDERED: MELO15TA29 PO (16:34)
[2024-02-07] MEDS: methylPREDNISolone SOD SUCC 125 MG/2 ML VL IM ONE (16:49)
[2024-02-07] MEDS: KETOROLAC TROMETH 30 MG/ML 1ML VIAL IM ONE (16:49)
== END 2024-02-07 17:32 | disposition home or self-care (01) ==
LOC: ER 14:42
DX: M25.552 Pain in left hip (principal); Z90.49 Acquired absence of other specified parts of digestive tract; Z79.1 Long term (current) use of non-steroidal anti-inflammatories (NSAID); Z79.899 Other long term (current) drug therapy
CPT/HCPCS: 73502; 96372; 99284; J1885; J2919